=== PATIENT | female | born 1980 | race Caucasian/White ===

== ENCOUNTER 2021-09-01 21:48 | Emergency (ER) | payer OTHER ==
[2021-09-01 22:32] LABS: BASOPHIL 0.3 % (0-2); EOSINOPHIL 0 % (0-5); HCT 43.1 % (37.0-47.0); HGB 14.5 g/dl (12.5-16.0); LYMPHOCYTE 14.5 % (15-48); MCH 30.3 pg (25.0-31.0); MCHC 33.6 g/dL (32.0-36.0); MCV 90.2 fL (78.0-100.0); MONOCYTE 8.8 % (0-12); MPV 9.9 fL (6.0-9.5); NEUTROPHIL 75.8 % (41-80); NRBC 0; PLT 178 K/uL (150-400); RBC 4.78 M/uL (4.20-5.40); RDW 12.7 % (11.5-14.0); WBC 3.3 K/uL (4.0-10.5)
[2021-09-01 22:54] LABS: ALBUMIN 3.3 g/dL (3.4-5.0); ALKALINE PHOSHATASE 165 U/L (46-116); ALT 271 U/L (14-59); AST 109 U/L (15-37); BILIRUBIN - TOTAL 0.6 mg/dL (0.2-1.0); BUN 9 mg/dL (7-18); BUN/CREAT RATIO (CALC) 14.3 RATIO; CHLORIDE 102 mmol/L (98-107); CO2 (BICARBONATE) 27 mmol/L (21-32); CREATININE 0.63 mg/dL (0.51-0.95); GLOBULIN (CALCULATION) 3.7 g/dL; GLUCOSE 97 mg/dL (74-106); POTASSIUM 3.4 mmol/L (3.5-5.1)
[2021-09-02] MEDS ORDERED: ELIQUIS5 M1 PO (00:18)
== END 2021-09-02 00:49 | disposition home or self-care (01) ==
LOC: FER 21:48
PROVIDERS: Emergency Medicine
DX: U07.1 COVID-19 (principal); Z88.6 Allergy status to analgesic agent; Z91.011 Allergy to milk products
CPT/HCPCS: 36415; 71045; 80053; 84484; 85025; 85379; 93005; J1650; J2405; J7030